=== PATIENT | male | born 1935 ===

== ENCOUNTER 2018-05-13 07:41 | Outpatient (CLI) | payer OTHER ==
[~2018-05-13 07:41] MED LIST: AMARYL; Atrovent 0.02% (0.5 MG/2.5 ML AMPUL) IH; CELEBREX100 MG PO; COMMODE; DIGOXIN125 MCG; GLUCOPHAGE XR750 MG PO; GLUCOSE TEST IN; ISORDIL10 MG PO; LANCETS; LANOXIN 0.25 MG PO; LANOXIN250 MCG; LASIX PO; LASIX20 MG; LOPRESSOR 25 MG PO; METOPROLOL SUCC25 MG; NEURONTIN PO; SHOWER CHAIR; SIMVASTATIN10 MG; VASOFLEX D1 CA1 EACH PO; XARELTO 20MG TAB PO; XARELTO20 MG PO; Xopenex 0.63 MG/3 ML SOLUTION IH; ZESTRIL20 MG PO; Zestril PO; Zocor PO; [UNRECOGNIZED DRUG - OTHER] PO
== END 2018-05-13 07:47 | disposition home or self-care (01) ==
LOC: TOM 07:41
DX: K63.5 Polyp of colon (principal); D12.2 Benign neoplasm of ascending colon

== ENCOUNTER 2018-12-16 08:23 | Inpatient (IN) | payer OTHER ==
[~2018-12-16] VITALS: Ht 172.7 cm; Wt 89.4 kg
[2018-12-16] MEDS ORDERED: FLOVENT HFA12 G1 (08:41)
--- NOTE | 2018-12-16 08:42 | NUR ---
SE RECIBE PTE EN [facility] ACOMPA[employer] DE FAMILIAR QUIEN REFIERE QUE PTE COMENZO A PRESENTAR GABE TOS SECA DESDE JAIRO CON SOB. FAMILIAR REFIERE QUE LLEVA MAS DE DOS SEMANAS PRESENTANDO DIFICULTAD PARA RESPIRAR.
--- NOTE | 2018-12-16 09:14 | NUR ---
EVALUADO POR EL SE ORIENTA SOBRE TRATAMIENTO MEDICO POR SE ORIENTA SOBRE TRATAMIENTO MEDICO LE EXTRAE MUESTRA DE TC Y SE ENVIAN AL LABORATORIO. CONECTADO A MONITOR CARDIACO SE LE REALIZA EKG Y SE LE PRESENTA AL . SE MANTIENE EN OBSERVACION.
--- NOTE | 2018-12-16 10:11 | NUR ---
SE COLOCA VT MASK AL 50% A PTE.
[2018-12-16] MEDS ORDERED: DIGOX250 MCG PO (16:40)
[2018-12-16] MEDS ORDERED: XARELTO15 MG PO (16:40)
[2018-12-16] MEDS ORDERED: LISINOPRIL10 MG PO (16:41)
[2018-12-16] MEDS ORDERED: METOPROLOL SUC100 MG PO (16:41)
[2018-12-16] MEDS ORDERED: ISOSORBIDE MONO30 MG PO (16:41)
[2018-12-16] MEDS ORDERED: FENOFIBRATE145 MG PO (16:42)
[2018-12-19] MEDS ORDERED: GLIMEPIRIDE1 MG PO (09:03)
[2018-12-19] MEDS ORDERED: NEURONTIN600 MG PO (09:04)
[2018-12-19] MEDS ORDERED: GABAPENTIN400 MG PO (09:04)
[2018-12-19] MEDS ORDERED: TRADJENTA5 MG PO (09:05)
[2018-12-19] MEDS ORDERED: ZESTRIL20 MG PO (09:05)
[2018-12-19] MEDS ORDERED: SIMVASTATIN10 MG PO (09:07)
[2018-12-19] MEDS ORDERED: LOPRESSOR25 MG PO (09:11)
[2018-12-19] MEDS ORDERED: LANOXIN62.5 MCG PO (09:13)
[2018-12-19] MEDS ORDERED: ATROVENT HFA12.9 GM IH (09:14)
[2018-12-19] MEDS ORDERED: XOPENEX0.63 MG/3 IH (09:15)
== END 2018-12-20 16:49 | disposition home or self-care (01) | DRG 189 ==
LOC: ER 08:23 → SEC-K 16:12 → MEDJ 16:12
PROVIDERS: ADMIT Specialist
PROC: BW24ZZZ Computerized Tomography (CT Scan) of Chest and Abdomen (ICD-10-PCS; principal; 2018-12-16)
PROC: 4A033R1 Measurement of Arterial Saturation, Peripheral, Percutaneous Approach (ICD-10-PCS; 2018-12-16)
PROC: 3E0F7GC Introduction of Other Therapeutic Substance into Respiratory Tract, Via Natural or Artificial Opening (ICD-10-PCS; 2018-12-16)
PROC: 4A12X4Z Monitoring of Cardiac Electrical Activity, External Approach (ICD-10-PCS; 2018-12-16)
PROC: 02HV33Z Insertion of Infusion Device into Superior Vena Cava, Percutaneous Approach (ICD-10-PCS; 2018-12-16)
PROC: 0T9B70Z Drainage of Bladder with Drainage Device, Via Natural or Artificial Opening (ICD-10-PCS; 2018-12-16)
DX: J96.01 Acute respiratory failure with hypoxia (principal); I50.33 Acute on chronic diastolic (congestive) heart failure; B37.1 Pulmonary candidiasis; J44.1 Chronic obstructive pulmonary disease with (acute) exacerbation; J90 Pleural effusion, not elsewhere classified; J98.11 Atelectasis; I25.810 Atherosclerosis of coronary artery bypass graft(s) without angina pectoris; J94.8 Other specified pleural conditions; N17.8 Other acute kidney failure; I43 Cardiomyopathy in diseases classified elsewhere; I13.0 Hypertensive heart and chronic kidney disease with heart failure and stage 1 through stage 4 chronic kidney disease, or unspecified chronic kidney disease; I11.0 Hypertensive heart disease with heart failure; I48.2 Chronic atrial fibrillation; Z79.01 Long term (current) use of anticoagulants; Z79.4 Long term (current) use of insulin; J61 Pneumoconiosis due to asbestos and other mineral fibers; E13.22 Other specified diabetes mellitus with diabetic chronic kidney disease; N18.3 Chronic kidney disease, stage 3 (moderate); E13.65 Other specified diabetes mellitus with hyperglycemia; D72.828 Other elevated white blood cell count; R31.29 Other microscopic hematuria; Z77.090 Contact with and (suspected) exposure to asbestos

== ENCOUNTER 2019-04-14 14:57 | Outpatient (CLI) | payer OTHER ==
[~2019-04-14 14:57] MED LIST changes: +ATROVENT HFA12.9 GM IH; +DIGOX250 MCG PO; +FENOFIBRATE145 MG PO; +FLOVENT HFA12 G1; +GABAPENTIN400 MG PO; +GLIMEPIRIDE1 MG PO; +ISOSORBIDE MONO30 MG PO; +LANOXIN62.5 MCG PO; +LISINOPRIL10 MG PO; +LOPRESSOR25 MG PO; +METOPROLOL SUC100 MG PO; +NEURONTIN600 MG PO; +SIMVASTATIN10 MG PO; +TRADJENTA5 MG PO; +XARELTO15 MG PO; +XOPENEX0.63 MG/3 IH
== END 2019-04-14 15:16 | disposition home or self-care (01) ==
LOC: NUCLEAR 14:57
DX: I70.211 Atherosclerosis of native arteries of extremities with intermittent claudication, right leg (principal)

== ENCOUNTER 2020-02-11 10:24 | Inpatient (IN) | payer OTHER ==
[~2020-02-11] VITALS: Ht 243.8 cm; Wt 5.0 kg
[2020-02-11] MEDS ORDERED: DIGOXIN ×2 (10:38→10:41)
[2020-02-11] MEDS ORDERED: NEURONTIN800 MG (10:39)
[2020-02-11] MEDS ORDERED: FENOFIBRATE (10:39)
[2020-02-11] MEDS ORDERED: LASIX40 MG (10:39)
[2020-02-11] MEDS ORDERED: ISORSORBIDE (10:40)
[2020-02-11] MEDS ORDERED: HUMULIN N100 UNIT/2 (10:40)
[2020-02-11] MEDS ORDERED: XARELTO15 MG (10:41)
[2020-02-11] MEDS ORDERED: METOPROLOL SUC200 MG (10:41)
[2020-02-11] MEDS ORDERED: ZESTRIL10 M1 (10:41)
[2020-02-11] MEDS ORDERED: FLOVENT (10:42)
[2020-02-11] MEDS ORDERED: ALLERGY RELIE15.8 ML (10:42)
[2020-02-11] MEDS ORDERED: XOPENEX HFA15 GM (10:42)
[2020-02-19] MEDS ORDERED: LORAZEPAM0.5 MG (09:27)
[2020-02-19] MEDS ORDERED: ISOSORBIDE MONO30 M2 (09:27)
[2020-02-19] MEDS ORDERED: DIGOXIN250 MCG (09:27)
[2020-02-19] MEDS ORDERED: SIMVASTATIN5 MG (09:28)
[2020-02-19] MEDS ORDERED: FENOFIBRATE54 MG (09:29)
== END 2020-02-20 15:13 | disposition expired | DRG 377 ==
LOC: ER 10:24 → ICU-2 14:21 → SURH 14:21 → SEC-K 02-14 14:37 → SURH 02-14 15:59 → SEC-K 02-14 16:49 → SURH 02-14 20:05
PROVIDERS: ADMIT Specialist; ATTEND Specialist
PROC: B24DZZZ Ultrasonography of Pediatric Heart (ICD-10-PCS; principal; 2020-02-12)
PROC: 4A12X4Z Monitoring of Cardiac Electrical Activity, External Approach (ICD-10-PCS; 2020-02-12)
PROC: 30233N1 Transfusion of Nonautologous Red Blood Cells into Peripheral Vein, Percutaneous Approach (ICD-10-PCS; 2020-02-16)
PROC: 4A033R1 Measurement of Arterial Saturation, Peripheral, Percutaneous Approach (ICD-10-PCS; 2020-02-16)
PROC: 3E0F7GC Introduction of Other Therapeutic Substance into Respiratory Tract, Via Natural or Artificial Opening (ICD-10-PCS; 2020-02-16)
PROC: 5A09457 Assistance with Respiratory Ventilation, 24-96 Consecutive Hours, Continuous Positive Airway Pressure (ICD-10-PCS; 2020-02-18)
DX: K62.5 Hemorrhage of anus and rectum (principal); I50.23 Acute on chronic systolic (congestive) heart failure; J96.01 Acute respiratory failure with hypoxia; D62 Acute posthemorrhagic anemia; N17.9 Acute kidney failure, unspecified; I13.0 Hypertensive heart and chronic kidney disease with heart failure and stage 1 through stage 4 chronic kidney disease, or unspecified chronic kidney disease; I48.20 Chronic atrial fibrillation, unspecified; I08.3 Combined rheumatic disorders of mitral, aortic and tricuspid valves; D50.8 Other iron deficiency anemias; R57.1 Hypovolemic shock; E11.65 Type 2 diabetes mellitus with hyperglycemia; J61 Pneumoconiosis due to asbestos and other mineral fibers; N18.3 Chronic kidney disease, stage 3 (moderate); E11.22 Type 2 diabetes mellitus with diabetic chronic kidney disease; Z79.4 Long term (current) use of insulin; Z03.818 Encounter for observation for suspected exposure to other biological agents ruled out; Z79.01 Long term (current) use of anticoagulants; Z66 Do not resuscitate